=== PATIENT | male | born 2000 | race Caucasian/White ===

== ENCOUNTER 2018-02-12 08:03 | Day surgery (SDC) | payer MEDICAID, SELFPAY ==
[2018-02-12] VITALS (7 sets, daily range): BP systolic 83–93; BP diastolic 65–69; PULSE 85–106; RESP 16–20; TEMP 36.3–36.9; O2SAT 97–100; BMI 23.3
[2018-02-12 08:56] LABS: Bedside Glucose 293 mg/dL (70-110)
[2018-02-12] MEDS: Insulin Lispro 100 UNIT/ML INSULN.PEN SC (09:34)
--- NOTE | 2018-02-12 12:00 | PCM.DC ---
You will use the following diet at home:: No restrictions Discharge Activity: Return to Normal Activity Call your doctor if your incision/area has: Sudden Increased Bleeding, Increased Pain/ Swelling Additional Dressing/Incision Instructions:: saltwater spray to nostrils 4-5 times per day if possible Allergies/Adverse Reactions: Allergies No Known Allergies Allergy (Verified 02/12/18 08:24) Medications to take at Discharge Insulin Glargine [Lantus (BKC)] 19 units SC QHS 02/04/18 Insulin Lispro [Humalog KwikPen] 5 unit SQ DINNER 02/04/18 Insulin Lispro [Humalog KwikPen] 13 unit SQ DAILY 02/04/18 Insulin NPH Human Isophane [Humulin N Kwikpen] 4 unit SQ LUNCH 02/04/18 Levothyroxine Sodium [Levoxyl] 150 mcg PO QHS 02/04/18 traZODone [Desyrel] 100 mg PO QHS 02/04/18 Hydrocodone/Acetaminophen [[place] 5-325 Tablet] 1 ea PO Q6H 5 Days #20 tab 02/12/18 Sulfamethoxazole/Trimethoprim [Bactrim 400-80 mg Tablet] 1 ea PO BID #14 tab 02/12/18 The following prescriptions were given: Sulfamethoxazole/Trimethoprim [Bactrim 400-80 mg Tablet] 1 ea PO BID #14 tab Hydrocodone/Acetaminophen [[place] 5-325 Tablet] 1 ea PO Q6H 5 Days #20 tab Primary Care Physician: Rosi Rainey NP-C [Primary Care Provider] - Test Results: Test results from this visit will be discussed in further detail at your follow-up appointment, if applicable. Please Follow Up With: Parth Vogt MD When: 1 week
[2018-02-12] MEDS: Oxymetazoline 0.05% 1 SPRAY SPRAY.BTL 15 SPRAY ×2 (12:10→13:01)
[2018-02-12] MEDS: Mupirocin Ointment 22gm Tube 1 APPLIC (12:59)
[2018-02-12 14:10] LABS: Bedside Glucose 242 mg/dL (70-110)
--- NOTE | 2018-02-12 14:17 | PCM.OPRPT ---
Problem List (1) Nasal congestion Status: Chronic (2) Nasal valve collapse Status: Chronic (3) Nasal turbinate hypertrophy Status: Chronic (4) Nose septum deviation Status: Chronic Report of Operation Date of Procedure: 02/12/18 Pre-Operative Diagnosis: 1. epistaxis. 2. nasal congestion. 3. nasal valve collapse, right and left. 4. inferior turbinate hypertrophy, right and left. 5. septal deviation Post-Operative Diagnosis: 1. epistaxis. 2. nasal congestion. 3. nasal valve collapse, right and left. 4. inferior turbinate hypertrophy, right and left. 5. septal deviation Surgery/Procedure Performed:: 1. open septorhinoplasty. 2. anterior septal reconstruction. 3. submucous resection inferior turbinates. 4. correction internal valve dysfunction, right and left. 5. septal cautery Type of Anesthesia:: General Description of Procedure: on the day of the procedure, after appropriate informed consent was obtained, the patient was brought to the operating room and placed in supine position on the operating table. he was placed under general endotracheal anesthesia by the anesthesiologist. the endotracheal tube was secured, the eyes were taped. the table was rotated 90 degrees toward the surgeon. the nose was prepped and draped in sterile fashion. the nose was injected with lidocaine/epinephrine. an inverted V columellar incision was made with a eklutna blade. this traversed into right and left marginal incisions. using three point retraction, the left then the right lower lateral cartilage was skeletonized with an iris scizzor. the upper lateral cartilages were skeletonized with a iris scizzor. the medial soheila was opened and the anterior septal angle was encountered. a left then right submucoperichondrial plane was dissected with the carly elevator. this was taken posteriorly to the bony-cartilaginous junction and inferiorly to the maxillary crest. there was a severe left-sided septal deflection with a large left septal spur. he had a very anterior deflection, thus an anterior septal reconstruction was deemed necessary. a 1cm strut was preserved from the keystone area and the remainder of the cartilaginous septum was removed with a carly and a D knife. the right and left upper lateral cartilages were disarticulated from the septum. the cartilaginous septum was shaped accordingly for reconstruction. deviated portions of the perpendicular plate of the ethmoid and vomer were removed with a ambrocio ventura. the anterior septal reconstruction was placed as a left-sided internal absence management consultant graft and sutured into the septum/upper lateral cartilage and maxillary crest periosteum with a 4-0 PDS suture. a 1cm by 2mm absence management consultant graft was placed on the right between the upper lateral cartilage and the septum with 4-0 PDS. the septum was closed with numerous quilting sutures, several incorporating the edwina septum with 4-0 chromic. the head of the left inferior turbinate was incised with a #15 blade, dissected submucosally with a carly, reduced using suction electrocautery and outfractured using a boies elevator. the head of the right inferior turbinate was incised with a #15 blade, dissected submucosally with a carly, reduced using suction electrocautery and outfractured using a boies elevator. there was a synechiae between the left septum and lateral nasal wall - this was lysed with a eddi cut. the septum was cauterized in areas with prominent vessels with the endoscope and suction cautery. the inverted V columellar incision was closed with 7-0 vicryl and the marginal incisions with 4-0 chromic. gtz splints were placed. the patient was awoken from anesthesia and transferred to the PACU in stable condition.
== END 2018-02-12 15:08 | disposition home or self-care (01) ==
LOC: SDC 08:05 → AC 08:08
PROVIDERS: Family Provider Nurse Practitioner Family; PCP Nurse Practitioner Family; Visit Provider Otolaryngology
PROC: (CPT 30520; principal; 2018-02-12 09:45)
DX: R04.0 Epistaxis (principal); M95.0 Acquired deformity of nose; J34.3 Hypertrophy of nasal turbinates; J34.2 Deviated nasal septum; R09.81 Nasal congestion; J34.89 Other specified disorders of nose and nasal sinuses
CPT/HCPCS: 30140; 30465; 30520; 31238; 82962; J7120; J2405

== ENCOUNTER 2018-02-21 19:57 | Emergency (ER) | payer MEDICAID, SELFPAY ==
[2018-02-21 19:59] VITALS: BP 130/81; PULSE 123; RESP 20; TEMP 38.3; O2SAT 99; BMI 22.4
[2018-02-21 21:22] LABS: Absolute Lymphocyte Count 0.42 X10^3/ul (0.83-4.51); Absolute Neutrophil Count 1.7 X10^3/uL (2.0-7.7); Basophil# 0.02 X10^3/uL; Basophil% 0.8 % (0-1); Eosinophil# 0.05 X10^3/uL; Hematocrit 41.1 % (40-54); Hemoglobin 14.4 g/dl (13.0-16.5); Lymphocyte # 0.42 X10^3/ul (4.0); Mean Corpuscular Hgb 30.7 pg (27.0-32.0); Mean Corpuscular Volume 87.6 fL (80-94); Mean Platelet Vol. 11.9 fl (6.2-12.0); Monocyte# 0.26 X10^3/uL; Monocyte% 10.5 % (0-10); Neutrophil # 1.72 X10^3/uL (2.7-7.7); Neutrophil % 69.7 % (47-70); Platelet Count 106 K/mm3 (150-450); RBC Distribution Width CV 12.5 % (11.6-14.6); Red Blood Count 4.69 M/mm3 (4.6-6.2); White Blood Count 2.5 K/mm3 (4.4-11.0)
[2018-02-21] MEDS: Ondansetron 4 MG/2 ML Vial IV (21:22)
[2018-02-21] MEDS: LORazepam 2 MG/ML Syringe 0.5 MG IV (21:22)
[2018-02-21] MEDS: 0.9% Normal Saline 1,000 ML 1000 ML IV (21:22)
[2018-02-21] MEDS: Morphine 4 MG/ML Syringe IV (21:24)
[2018-02-21 21:27] VITALS: RESP 24; O2SAT 97
[2018-02-21 21:30] LABS: Differential Indicated SCAN CRITERIA MET; POSITIVE COUNT NO; POSITIVE DIFFERENTIAL YES; POSITIVE MORPHOLOGY NO
[2018-02-21 21:38] LABS: AST(SGOT) 44 U/L (15-37); Alanine Aminotransfer ALT/SGPT 84 U/L (16-61); Alkaline Phosphatase 92 U/L (45-117); Anion Gap 10 (5-15); BUN 15 mg/dL (7-18); BUN/Creat Ratio 15.7 RATIO (10-20); Calcium,Total 8.9 mg/dL (8.5-10.1); Chloride 100 mmol/L (98-107); Creatinine, Serum 0.96 mg/dL (0.70-1.30); EST Glomerular Filtration Rate 107 mL/min (>60); Est Glom Filt Rate - Afr Amer 129 mL/min (>60); Glucose 286 mg/dL (74-106); Potassium 4.3 mmol/L (3.5-5.1); Sodium Level 135 mmol/L (136-145)
[2018-02-21 21:47] LABS: Lactic Acid 1.6 mmol/L (0.4-2.0)
[2018-02-21 21:58] LABS: Platelet Estimate MOD DEC (ADEQ)
[2018-02-21 21:59] LABS: Red Cell Morphology NORM C+C NORMAL (NORM C&C)
[2018-02-21] MEDS: Acetaminophen 500 MG Tablet 1000 MG PO (22:04)
[2018-02-21 22:45] VITALS: PULSE 99; RESP 24; TEMP 37.6
--- NOTE | 2018-02-21 23:08 | ED.DCSUM_ITS ---
- ER Visit Summary Date of Service: 02/21/18 Chief Complaint: Fever History of Present Illness: The patient is a [address] Rainey and Dr. Vogt. On February 12 he had a septoplasty with turbinate repair. Mother reports that he was on Bactrim which she finished 2 days ago. He developed a fever 3 days ago. At its highest it has been 102?. He has had a little bit of cough. He has vomited multiple times. No blood in his emesis. No diarrhea. Patient is nonverbal limiting his ability to report any source for the fever. Mother reports that he has passed blood clot from his left nostril twice. The last was 4 days ago. He has splints in his nose currently and has an appoint with Dr. Vogt tomorrow to have these removed. Physical Examination: Vitals: 101.0, 130/81, 123, 20, 99% on room air which is not hypoxic. General: Well-nourished and well-developed. Head: Normocephalic atraumatic. HEENT: Dried blood in his nares bilaterally. No purulent drainage. Neck: Supple, no lymphadenopathy. No JVD. Nontender. Cardiovascular: Regular rate and rhythm. No murmurs. Respiratory: No respiratory distress. Clear to auscultation bilaterally. Abdominal: Soft, nontender, nondistended, normal bowel sounds. No guarding, rebound, or peritoneal signs. Back: Nontender. Extremities: Nontender, no edema. Skin: Normal color, no rash. Neurologic: Alert. Moves all extremities well.. Psych: Normal affect. Test Results: CBC is remarkable for a white count of 2.5 with 106 platelets, 17 lymphocytes, and 11 monocytes. Lactic acid is 1.6. Chem-7 is marked for a sodium of 135 and glucose of 286. LFTs marked for an ALT of 84 and AST 44. Chest x-ray shows no acute disease. Emergency Department Course and Treatment: Patient is unable to give a urine sample. I do not think cathing him is in his best interest. Mother agrees with this. I suspect that this is due to sinusitis. However, patient has to be sedated for a CT and I do not want to expose him to the radiation of this unnecessarily. He is given a dose of Bactrim here. Treatment Plan: Patient will be discharged with Zofran. Instructed to follow- up with Dr. Vogt tomorrow as previously scheduled. Speak with him about the fever and potential need for further antibiotic treatment. Return to the emergency department for any worsening symptoms. Disposition: To home in improved and stable condition. Impression: 1. Fever, uncertain cause. 2. 10 days status post septoplasty. This note was generated with [employer] dictation software. It may contain incorrect words, spelling, and punctuation that were not noted in review of the chart prior to signing ED Disposition - Plan for ED Patient: Disposition: Home or Assisted Living Chief Complaint: General Illness Instructions: ED Fever Unconf Cause Prescriptions: Ondansetron [Zofran Odt] 4 mg PO Q8H PRN PRN #10 tablet PRN Reason: Nausea Referrals: Parth Vogt MD [STAFF PHYSICIAN] - Keep Jovana appointment
[2018-02-21] MEDS: Smz/Tmp Ds Tablet 1 TABLET PO (23:36)
[2018-02-21] MEDS: Ondansetron ODT 4 MG Tablet PO (23:37)
[2018-02-21 23:46] VITALS: BP 115/61; PULSE 79; RESP 20; O2SAT 97
--- NOTE | 2018-02-21 23:47 | ED.RN ---
THIS NURSE REVIEWED D/C INSTRUCTIONS WITH MOTHER. MOTHER VERBALIZED UNDERSTANDING OF INSTRUCTIONS. IV D/C. IV CATHETER INTACT. PT TOLERATED WELL. MOTHER DENIES FURTHER NEEDS OR QUESTIONS AT THIS TIME. PT ASSISTED TO VEHICLE VIA W/C AND THIS NURSE ASSISTANCE
== END 2018-02-21 23:48 | disposition home or self-care (01) ==
PROVIDERS: Emergency Provider Emergency Medicine; Family Provider Nurse Practitioner Family; PCP Nurse Practitioner Family
DX: R50.9 Fever, unspecified (principal); Z98.890 Other specified postprocedural states; E10.9 Type 1 diabetes mellitus without complications; E05.00 Thyrotoxicosis with diffuse goiter without thyrotoxic crisis or storm; Q99.8 Other specified chromosome abnormalities; Z79.4 Long term (current) use of insulin; Z79.899 Other long term (current) drug therapy
CPT/HCPCS: 71046; 80053; 83605; 85025; 99284; J7030; A4216; J2405

== ENCOUNTER → 2021-04-19 10:01 | Outpatient (CLI) | payer MEDICARE, MEDICAID, SELFPAY ==
[2021-04-19 12:37] LABS: Vitamin B12 1183 pg/mL (211-911)
[2021-04-19 12:41] LABS: ALB/GLOB Ratio 1.2 RATIO (0.9-2.4); AST(SGOT) 19 U/L (15-37); Alanine Aminotransfer ALT/SGPT 40 U/L (16-61); Albumin, Serum 4.4 g/dL (3.2-5.0); Alkaline Phosphatase 93 U/L (45-117); Anion Gap 5 (5-15); BUN 22 mg/dL (7-18); BUN/Creat Ratio 28.8 RATIO (10-20); Calcium,Total 9.4 mg/dL (8.5-10.1); Chloride 109 mmol/L (98-107); Cholesterol 111 mg/dL (200); Creatinine, Serum 0.76 mg/dL (0.70-1.30); EST Glomerular Filtration Rate 134 mL/min (>60); Est Glom Filt Rate - Afr Amer 162 mL/min (>60); Globulin 3.8 g/dL (2.2-4.2); Glucose 80 mg/dL (74-106); High Density Lipoprotein 44 mg/dL; Potassium 3.6 mmol/L (3.5-5.1); Protein, Total 8.2 g/dL (6.4-8.2); Sodium Level 141 mmol/L (136-145); T4 Free Direct 1.43 ng/dL (0.76-1.46); Thyroid Stim Hormone (TSH) 0.09 uIU/mL (0.358-3.74); Triglycerides 118 mg/dL; Very Low Density Lipoprotein 24 mg/dL (5-40)
== END ==
PROVIDERS: PCP Nurse Practitioner Family; Referring Provider Nurse Practitioner Family; Visit Provider Nurse Practitioner Family
DX: E03.9 Hypothyroidism, unspecified (principal); E11.9 Type 2 diabetes mellitus without complications; R20.2 Paresthesia of skin
CPT/HCPCS: 36415; 80053; 80061; 82607; 84439; 84443

== ENCOUNTER → 2022-08-17 | Outpatient (CLI) | payer MEDICARE, MEDICAID, SELFPAY ==
[2022-08-17 10:24] LABS: Vitamin D,25 Hydroxy 33.7 ng/mL
[2022-08-17 10:26] LABS: ALB/GLOB Ratio 1.2 RATIO (0.9-2.4); AST(SGOT) 22 U/L (15-37); Alanine Aminotransfer ALT/SGPT 40 U/L (16-61); Albumin, Serum 4.1 g/dL (3.2-5.0); Alkaline Phosphatase 84 U/L (45-117); Anion Gap 7 (5-15); BUN 24 mg/dL (7-18); BUN/Creat Ratio 26.6 RATIO (10-20); Calcium,Total 9.3 mg/dL (8.5-10.1); Chloride 102 mmol/L (98-107); Cholesterol 92 mg/dL (200); EST Glomerular Filtration Rate 110 mL/min (>60); Est Glom Filt Rate - Afr Amer 133 mL/min (>60); Globulin 3.4 g/dL (2.2-4.2); Glucose 191 mg/dL (74-106); High Density Lipoprotein 43 mg/dL; Potassium 3.7 mmol/L (3.5-5.1); Protein, Total 7.5 g/dL (6.4-8.2); Sodium Level 139 mmol/L (136-145); T4 Free Direct 1.37 ng/dL (0.76-1.46); Thyroid Stim Hormone (TSH) 0.98 uIU/mL (0.358-3.74); Triglycerides 95 mg/dL; Very Low Density Lipoprotein 19 mg/dL (5-40)
== END | disposition home or self-care (01) ==
LOC: LAB 09:23
PROVIDERS: PCP Nurse Practitioner Family; Referring Provider Nurse Practitioner Family; Visit Provider Nurse Practitioner Family
DX: E10.65 Type 1 diabetes mellitus with hyperglycemia (principal); E03.9 Hypothyroidism, unspecified; E55.9 Vitamin D deficiency, unspecified
CPT/HCPCS: 36415; 80053; 80061; 82306; 84439; 84443

== ENCOUNTER → 2023-09-19 | Outpatient (CLI) | payer MEDICARE, MEDICAID, SELFPAY ==
[2023-09-19 11:17] LABS: ALB/GLOB Ratio 1.2 RATIO (0.9-2.4); AST(SGOT) 20 U/L (15-37); Alanine Aminotransfer ALT/SGPT 37 U/L (16-61); Albumin, Serum 4.2 g/dL (3.2-5.0); Alkaline Phosphatase 85 U/L (45-117); Anion Gap 6 (5-15); BUN 21 mg/dL (7-18); BUN/Creat Ratio 23.9 RATIO (10-20); Calcium,Total 9.4 mg/dL (8.5-10.1); Chloride 105 mmol/L (98-107); Cholesterol 109 mg/dL (200); Creatinine, Serum 0.88 mg/dL (0.70-1.30); EST Glomerular Filtration Rate 112 mL/min (>60); Est Glom Filt Rate - Afr Amer 136 mL/min (>60); Globulin 3.5 g/dL (2.2-4.2); Glucose 233 mg/dL (74-106); High Density Lipoprotein 48 mg/dL; Potassium 3.7 mmol/L (3.5-5.1); Protein, Total 7.7 g/dL (6.4-8.2); Sodium Level 139 mmol/L (136-145); T4 Free Direct 1.09 ng/dL (0.76-1.46); Thyroid Stim Hormone (TSH) 9.81 uIU/mL (0.358-3.74); Triglycerides 126 mg/dL; Very Low Density Lipoprotein 25 mg/dL (5-40)
== END | disposition home or self-care (01) ==
LOC: LAB 09:38
PROVIDERS: PCP Nurse Practitioner Family; Referring Provider Nurse Practitioner Family; Visit Provider Nurse Practitioner Family
DX: E10.65 Type 1 diabetes mellitus with hyperglycemia (principal); E03.9 Hypothyroidism, unspecified
CPT/HCPCS: 36415; 80053; 80061; 84439; 84443